=== PATIENT | female | born 1955 ===

== ENCOUNTER 2020-12-23 06:34 | Day surgery (SDC) | payer OTHER ==
[~2020-12-23 06:34] MED LIST: ALLEGRA ALLERG180 MG PO; CARDIZEM LA180 MG PO; COZAAR50 MG PO; GLIMEPIRIDE2 MG; METFORMIN HCL500 M3 PO; OMEGA-31000 MG PO; SYNTHROID150 MCG PO; ZOCOR20 MG PO
[2020-12-23] MEDS ORDERED: CIPRO500 MG PO (13:24)
[2020-12-23] MEDS ORDERED: CILOXAN5 ML OTIC (13:24)
[2020-12-23] MEDS ORDERED: ZOFRAN8 MG PO (13:25)
== END 2020-12-23 16:35 | disposition home or self-care (01) ==
LOC: CIR.AMB 06:34
PROVIDERS: ATTEND Otolaryngology Otology & Neurotology
DX: H95.11 Chronic inflammation of postmastoidectomy cavity (principal); H90.A12 Conductive hearing loss, unilateral, left ear with restricted hearing on the contralateral side; H72.02 Central perforation of tympanic membrane, left ear; Z20.822 Contact with and (suspected) exposure to COVID-19